=== PATIENT | male | born 1980 | race Two or more races ===

== ENCOUNTER 2016-11-19 12:52 | Emergency (ER) | payer SELFPAY ==
[~2016-11-19] VITALS: Ht 182.9 cm; Wt 72.6 kg
[2016-11-19] MEDS ORDERED: Cephalexin 500mg cap ORAL ONE (13:15)
--- NOTE | 2016-11-19 13:53 | Emergency Room Report ---
History of Present Illness General Chief Complaint: Lower Extremity Injury Source: Patient Present Illness HPI 36-year-old male presents emergency department complaining of pain and swelling to the right lower extremity. Patient is a poor historian and uncooperative with conversation. Patient states he took 20 mg of Adderall today, and shortly after noticed pain and swelling in the right leg. Patient is unable to comment on severity of pain. Pt. denies intent to harm himself or others. Patient also has multiple stories for house he received his symptoms. ROS is limited due to poor patient cooperation. Allergies: Coded Allergies: No Known Allergies (Unverified , 11/19/16) Patient History Past Medical History: see triage record Past Surgical History: none Pertinent Family History: none Reviewed Nursing Documentation: PMH: Agreed, PSxH: Agreed Nursing Documentation-PMH Past Medical History: No History, Except For History Of Psychiatric Problem: Yes Review of Systems All Other Systems: limited - due to pt. cooperation Physical Exam Vital Signs Date Time Temp Pulse Resp B/P Pulse Ox O2 Delivery O2 Flow Rate FiO2 11/19/16 11:38 97.9 120 18 143/73 100 Room Air Sp02 EP Interpretation: reviewed, abnormal - tachycardic at 120bpm General Appearance: no apparent distress, alert, GCS 15, non-toxic Head: normocephalic, atraumatic Eyes: bilateral eye PERRL, bilateral eye normal inspection ENT: hearing grossly normal, normal pharynx, no angioedema, normal voice Neck: full range of motion, supple/symm/no masses Respiratory: chest non-tender, lungs clear, normal breath sounds, speaking full sentences Cardiovascular #1: regular rate, rhythm, no edema Gastrointestinal: no guarding, no rebound Rectal: deferred Musculoskeletal: back normal, gait/station normal, normal range of motion, no calf tenderness, inflammation - right foot and ankle, increased Temperature to palpation, swelling - right foot and ankle, other - there is erythema, swelling , increased temperature to palpation to the dorsum of the right foot and lateral right ankle, TTP, several noted abrasions, tender - right foot and ankle Neurologic: alert, oriented x3, responsive, motor strength/tone normal, sensory intact, cerebellar normal, normal gait, no pronator Psychiatric: mood/affect normal, no suicidal/homicidal ideation, anxious - pt is occasionally hypervigilant and somewhat paranoid with remarks, other - rapid rate of speech, and likes to engage in verbal comunication but with no clear train of thought. pt. is easily distracted. Skin: warm/dry, well hydrated, other - there is erythema, swelling, increased temperature to palpation to the dorsum of the right foot and lateral right ankle , TTP, several noted abrasions Medical Decision Making PA Attestation Dr. petersen is my supervising Physician whom patient management has been discussed with. Diagnostic Impression: Primary Impression: Cellulitis Qualified Codes: L03.818 - Cellulitis of other sites Additional Impressions: Right ankle sprain Qualified Codes: S93.401A - Sprain of unspecified ligament of right ankle, initial encounter Abrasion foot/toe Substance abuse ER Course Pt. presents to the ED c/o pain, swelling, and erythema of right ankle, uncooperative to provide accurate HPI. pt states he took 20mg Adderall this A.M Ddx considered but are not limited to cellulitis,abrasions, fracture, d/L, gout Vital signs:Pt is tachycardic ( mild) remaining VS are are WNL, pt. is afebrile H&PE are most consistent with Cellulitis, abrasions, suspicious for fx or sprain. ORDERS: -X-ray Right foot 3 views: No fracture, dislocation, or soft tissue injury per soft read in the ED by Dr. norton. ED INTERVENTIONS: -Pt refuses pain medications -Pt. refuses Keflex -Pt refuses wound cleaning and bacitracin. Pt refuses application of ankle splint, and does not want crutches. DISCHARGE: At this time pt. is stable for d/c to home. Will provide printed patient care instructions, and any necessary prescriptions. Care plan and follow up instructions have been discussed with the patient prior to discharge. Last Vital Signs Date Time Temp Pulse Resp B/P Pulse Ox O2 Delivery O2 Flow Rate FiO2 11/19/16 11:38 97.9 120 18 143/73 100 Room Air Disposition: HOME, SELF-CARE Condition: Stable Referrals: NOT CHOSEN [facility]/MD,REFERRING (PCP) Patient Instructions: Ankle Sprain, Cellulitis, [id number] Additional Instructions: Take medications as directed. Follow up with PCP in 3-5 days Return sooner to ED if new symptoms occur, or current symptoms become worse. - Please note that this Emergency Department Report was dictated using Person[employer] software developer technology software, occasionally this can lead to erroneous entry secondary to interpretation by the dictation equipment. Lubna Renee Nov 19, 2016 13:53
[2016-11-19] MEDS ORDERED: Bacitracin Oint UD TOPIC ONE (14:00)
[2016-11-19 14:45] VITALS: BP 143/73
[2016-11-20] MEDS ORDERED: KEFLEX500 MG ORAL (09:45)
--- NOTE | 2016-11-20 12:06 | Diagnostic Imaging Report ---
Indication: Pain Comparison: None Findings: 3 views of the right foot were obtained. No acute fractures, malalignment, erosions or periostitis are identified. Bone mineralization is within normal limits. Soft tissues are unremarkable. Impression: Negative examination of the right foot.
== END 2016-11-19 14:45 | disposition home or self-care (01) ==
LOC: EDBD 12:52 → EMR 13:42
DX: L03.818 Cellulitis of other sites (principal); S93.401A Sprain of unspecified ligament of right ankle, initial encounter; S90.511A Abrasion, right ankle, initial encounter; X58.XXXA Exposure to other specified factors, initial encounter; Y93.9 Activity, unspecified; Y92.9 Unspecified place or not applicable; F19.10 Other psychoactive substance abuse, uncomplicated
CPT/HCPCS: 99283

== ENCOUNTER 2016-11-20 07:22 | Emergency (ER) | payer SELFPAY ==
[~2016-11-20] VITALS: Ht 177.8 cm; Wt 59.0 kg
--- NOTE | 2016-11-20 09:16 | Emergency Room Report ---
History of Present Illness General Chief Complaint: General Complaint Source: Patient Present Illness HPI 36-year-old male since ED for evaluation. Patient complaining of R foot pain. Patient brought in by EMS because bystander called 911. Patient was loitering outside. Patient was here yesterday for the same complaint. Patient was seen and evaluated by PA. Noted to have a cellulitis of the foot and concern for fracture. Patient was splinted and subsequently discharged. Patient is a poor historian, likely due to drug use. Unable to tell me how he may have injured his foot or how long ago. Denies any fevers or chills. No aggravating relieving factors. Denies any other associated symptoms Allergies: Coded Allergies: No Known Allergies (Unverified , 11/19/16) Patient History Past Medical History: none Past Surgical History: none Pertinent Family History: none Social History: Denies: alcohol use, drug use, smoking Immunizations: UTD Reviewed Nursing Documentation: PMH: Agreed, PSxH: Agreed Nursing Documentation-PMH Past Medical History: No Stated History Review of Systems All Other Systems: negative except mentioned in HPI Physical Exam Vital Signs Date Time Temp Pulse Resp B/P Pulse Ox O2 Delivery O2 Flow Rate FiO2 11/20/16 07:18 98.1 78 16 120/70 98 Room Air Sp02 EP Interpretation: reviewed, normal General Appearance: no apparent distress, alert, GCS 15, non-toxic Head: normocephalic Eyes: bilateral eye PERRL, bilateral eye normal inspection ENT: normal ENT inspection Neck: normal inspection Respiratory: normal inspection Cardiovascular #1: normal inspection Gastrointestinal: normal inspection Rectal: deferred Genitourinary: no CVA tenderness Musculoskeletal: swelling - R foot. erythema, tender Neurologic: alert, responsive, motor strength/tone normal, sensory intact, speech normal, other - disoriented Psychiatric: other - disoriented Skin: normal inspection Lymphatic: normal inspection Medical Decision Making Diagnostic Impression: Primary Impression: Cellulitis Qualified Codes: L03.90 - Cellulitis, unspecified Additional Impression: Substance abuse ER Course Hospital Course 36-year-old female presents to ED with redness, pain to right foot. Here yesterday for same reason Differential diagnoses include: Cellulitis, dermatitis, insect bite, abscess Clinical course Patient placed on stretcher. After initial history, physical exam reveals a male in no acute distress. Foot is warm and erythematous. Consistent with cellulitis. Patient refused prescriptions and antibiotics in ED yesterday. Had to be escorted by security. We called social media marketer to evaluate patient today. Did not believe patient requires any immediate psychiatric evaluation. Patient will be discharged. Agrees to take his prescriptions at this time. However does not want to be discharged patient is escorted by security out of hospital Diagnosis - cellulitis, substance abuse stable and discharged to home with prescription for Keflex. Instructed to followup with PMD. Instructed return to ED if symptoms recur or worsen Last Vital Signs Date Time Temp Pulse Resp B/P Pulse Ox O2 Delivery O2 Flow Rate FiO2 11/20/16 07:18 98.1 78 16 120/70 98 Room Air Status: improved Disposition: HOME, SELF-CARE Condition: Stable Scripts Cephalexin* (KEFLEX*) 500 Mg Capsule 500 MG ORAL Q6H, #28 CAP 0 Refills Prov: ERAGAN SPIVEY M.D. 11/20/16 Referrals: NOT CHOSEN [facility]/,REFERRING (PCP) REAGAN SPIVEY M.D. Nov 20, 2016 09:16
[2016-11-20] MEDS ORDERED: KEFLEX500 MG ORAL (09:45)
[2016-11-20 10:04] VITALS: BP 120/70
== END 2016-11-20 10:02 | disposition home or self-care (01) ==
LOC: EDBD 07:22 → EMR 07:32
DX: L03.90 Cellulitis, unspecified (principal); F19.10 Other psychoactive substance abuse, uncomplicated
CPT/HCPCS: 99283